=== PATIENT | female | born 1985 | race Caucasian/White ===

== ENCOUNTER 2018-06-02 14:51 | Emergency (ER) | payer MEDICARE ==
[2018-06-02] MEDS ORDERED: Ibuprofen 200 MG TAB ONE (15:11)
--- NOTE | 2018-06-02 15:22 | RAD ---
TWO VIEWS CHEST: Comparison: None. History: Left upper back pain. FINDINGS: Two views of the chest show normal sized cardiomediastinal silhouette. There is no evidence of consol idation, mass, or pleural effusion. The bones are unremarkable. IMPRESSION: No evidence of acute cardiopulmonary disease. POS: [facility]
== END 2018-06-02 16:32 | disposition home or self-care (01) ==
LOC: NAV ERS 14:51
DX: M54.6 Pain in thoracic spine (principal); F32.9 Major depressive disorder, single episode, unspecified; G10 Huntington's disease; Z79.899 Other long term (current) drug therapy
CPT/HCPCS: 71046